=== PATIENT | female | born 1985 | race Caucasian/White ===

== ENCOUNTER 2016-09-20 07:36 | Inpatient (IN) | payer OTHER ==
[2016-09-20 08:32] VITALS: BMI 38.2
[2016-09-20] MEDS: Lactated Ringer's 1,000 ML IV SCH ×2 (08:58→19:26)
[2016-09-20 09:37] LABS: BASO % 0.4 % (0.0-2.0); EOS % 0.3 % (0.0-4.0); HEMATOCRIT 36.5 % (34.0-47.0); LYMPH # 2.1 K/uL (1.0-4.3); LYMPH % 24.3 % (20.0-40.0); MEAN CELL VOLUME 88.6 fL (81.0-99.0); MEAN CORPUSCULAR HEMOGLOBIN 29.2 pg (27.0-31.0); MEAN PLATELET VOLUME 8.4 fL (7.2-11.7); MONO # 0.5 K/uL (0.0-0.8); MONO % 5.7 % (0.0-10.0); RED CELL DISTRIBUTION WIDTH 13.4 % (11.5-14.5); WHITE BLOOD COUNT 8.5 K/uL (4.8-10.8)
[2016-09-20 09:45] LABS: CHLORIDE 104 mmol/L (98-107); POTASSIUM 3.9 mmol/L (3.6-5.2); SODIUM 137 mmol/L (132-148)
[2016-09-20 09:47] LABS: GFR AFRICAN-AMERICAN > 60
[2016-09-20 09:48] LABS: ALB/GLOB RATIO 0.9 (1.0-2.1); ALKALINE PHOSPHATASE 217 U/L (38-126); ALT/SGPT 13 U/L (9-52); AST/SGOT 13 U/L (14-36); BILIRUBIN,TOTAL 0.2 mg/dL (0.2-1.3); BLOOD UREA NITROGEN 7 mg/dL (7-17); CARBON DIOXIDE 20 mmol/L (22-30); GLUCOSE,RANDOM 79 mg/dL (65-105); TOTAL PROTEIN 6.6 g/dL (6.3-8.3)
[2016-09-20 09:49] LABS: CALCIUM 8.4 mg/dl (8.6-10.4)
[2016-09-20 09:51] LABS: RBC URINE 1 /hpf (0-3); URINE BACTERIA OCC (<OCC); URINE BILIRUBIN NEGATIVE (NEGATIVE); URINE BLOOD NEGATIVE (NEGATIVE); URINE COLOR Yellow (YELLOW); URINE GLUCOSE (UA) NORMAL (Normal); URINE KETONE NEGATIVE (NEGATIVE); URINE LEUKOCYTE ESTERASE NEG Leu/uL (Negative); URINE PROTEIN NEGATIVE (NEGATIVE); URINE UROBILINOGEN NORMAL mg/dL (0.2-1.0); WBC URINE 1 /hpf (0-5)
--- NOTE | 2016-09-20 10:35 | OBHP ---
Datetime: 09/20/2016 08:15 IP Adm Impression: Term, intrauterine ; No Active Labor; Intact Membranes IP Admit Plan: Admit to unit; Initiate labor induction protocol Admit Comment, IP Provider: 31 yo , LMP 12/20/15, STEVIE 09/25/16, EGA 39w 2d confirmed by sono at 8 weeks c/o crampy pain, onset 0500 hours. (+) AFM; denies LOF, VB. care: Dr. 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 x 3 years Fam Hx: Mother and father, both alive, both 58 y.o.; both, no med issues P.E.: as above. WD in NAD. Awake, alert, oriented to time, person and place. Pleasant and cooperat barbara. Assessment: 31 y.o. P0010, 39w 2d, prolonged latent phase of labor. Category 1 tracing. D/W patien t: cervical ripening; possible pitocin; pain management options; and possiblity of , if nee ded. Patient expresed an understanding; no questions offered. Clinically stable. Plan: 1) Admit 2) NPO 3) Admission labs 4) Continuous EFM 5) Cervidil 6) Anesthesia consult 7) Anticipate vaginal delivery - as per, and discussed with, Dr. Sidhu Pelvic Type - PN: Adequate Extremities - PN: Normal Abdomen - PN: Normal Back - PN: Normal Breast - PN: Not Done Lungs - PN: Normal Heart - PN: Normal Thyroid - PN: Not Done Neurologic - PN: Normal HEENT - PN: Normal General - PN: Normal Weight - Estimated: 3178 Presentation-Admit: Vertex FHR - Baseline A Provider: 145 Membranes, Provider: Intact Contraction Comments Provider: 5-7 Comments, ACOG Physical Exam: Skin: warm, dry, intact HEENT: full ROM Lungs: CTA bilaterally Cardiac: RRR, normal S1, S2 Abdomen: Soft, Gravid. non tender. Fundal height 37cm : no masses or discharge Extremities: no calf tenderness, cyanosis or edema All other systems reviewed and are negative Gestation - Est Wks by US: 39w 2d IP Hx Assessment: The History has been Reviewed and is Current Vital Signs Provider: Reviewed; Within Normal Limits IP Chief Complaint: Maternal discomfort NICHD Variability Prov Fetus A: Moderate 6-25bpm NICHD Accel Fetus A IP Provider: 15X15 FHR Category Provider Fetus A: Category I NICHD Decel Fetus A IP Provider: None Dilatation, Provider: 1-2 Effacement, Provider: 50 Station, Provider: -1 Genitourinary Exam: Normal DTRs - PN: Not Done
[2016-09-20] MEDS ORDERED: Nalbuphine 20 mg/ml Inj (1 ml) IVP PRN (15:15)
[2016-09-20] MEDS ORDERED: Dextrose 5%/Lactated Ringer's 1,000 ML IV SCH (15:15)
--- NOTE | 2016-09-20 17:40 | OBPN ---
Datetime: 09/20/2016 17:34 Contraction Comments Provider: 2-5 FHR - Baseline A Provider: 145 Gestation - Est Wks by US: 39w 2d Presentation-Admit: Vertex IP Progress Note Comment: Patient reports sensation of "something between my legs" V.E. : as above. Cervidil maintained in posterior vaginal fornix. Assessment: 31 yo P0, 39w 2d, prolonged latent phase of labor - cervical ripening. descent c ontributing to vaginal pressure and sensation. Category 1 tracing. Clinically stable Plan: 1) Continue present management 2) Anticipate vaginal delivery NICHD Accel Fetus A IP Provider: 15X15 NICHD Variability Prov Fetus A: Moderate 6-25bpm Dilatation, Provider: 3 Effacement, Provider: 50 Station, Provider: 1 NICHD Decel Fetus A IP Provider: None Datetime: 09/20/2016 08:15 Membranes, Provider: Intact Weight - Estimated: 3178 Vital Signs Provider: Reviewed; Within Normal Limits FHR Category Provider Fetus A: Category I
[2016-09-20] MEDS ORDERED: Oxytocin 30 UNIT 500 ML IV SCH (18:15)
[2016-09-20] MEDS ORDERED: Oxytocin 30 UNIT 500 ML IV PRN (18:24)
[2016-09-20] MEDS ORDERED: Oxytocin 30 UNIT 500 ML IV ONE (19:21)
--- NOTE | 2016-09-20 22:24 | OBPN ---
Datetime: 09/20/2016 22:19 Membranes, Provider: Ruptured Amniotic Fluid Color, Provider: Clear Contraction Comments Provider: 1 FHR - Baseline A Provider: 150 Gestation - Est Wks by US: 39w 2d Presentation-Admit: Vertex IP Progress Note Comment: Asked by Dr. Sidhu to perform AROM Patient reports pain scale of 3/10. V.E.: as above. AROM performed without incident - copious amount of clear fluid retrieved. Pitocin at 8 MU/min Assessment: 31 yo P0010, 39w 2d, prolonged latent phase of labor; S/P cervidil, on pitocin, S/P AR OM. Categry 1 tracing. Stable Plan: 1) Continue present management 2) Anticipate vaginal delivery - Spoke with Dr. Sidhu NICHD Accel Fetus A IP Provider: 15X15 FHR Category Provider Fetus A: Category I NICHD Variability Prov Fetus A: Moderate 6-25bpm Dilatation, Provider: 3-4 Effacement, Provider: 50 Station, Provider: 1 NICHD Decel Fetus A IP Provider: None
[2016-09-21] MEDS ORDERED: Lidocaine 2% Inj (20ml) ONE (02:31)
--- NOTE | 2016-09-21 03:30 | OBPN ---
Datetime: 09/21/2016 02:29 IP Progress Impression: Normal progression of labor; Reassuring heart rate IP Informed Consent Obtain: Vaginal Delivery; Risks, Benefits and Alternatives Discussed IP Progress Plan: Continue present management IP Progress Note Comment: Pt was fully dilated and felt pressure VE :10/100/+1 A/P @ 39.2 wks fully dilated, in active labor -start pushign, -antipce Datetime: 09/20/2016 08:15 Membranes, Provider: Ruptured
--- NOTE | 2016-09-21 03:36 | OBDS ---
DELIVERY PERSONNEL Delivery Doctor: Niya Sidhu MD Shrimp Packer: Maria Ines Blankenship RN MATERNAL INFORMATION Medications in Delivery: pitocin 20 units IV Maternal Complications: None; Premature Rupture of Membranes Provider Comments: pt was fully dilated, Atraumic, sponteous deliveyr of head in dany position, no nu chal cord noted. Atramaitc, spontaenous delivery of anterior followed by posterior soulder followed b y deliveyr of body. Both oral and nasal passages of the baby were bulb suctioned, umbilcal cord was c lmaped and cut. Baby hadned to mother on abodmien with rn assistance. cord blood and cord gases jorden lcted and sent x 2. Fundus firm. Good hemostais. bilateral sulcal tears and right periurethral lace ration noted and repaired after admisiting local anethestic lidocaine and repaored with 2-0 and 3-[address] Good hemostasis, no complication live female infant apgars 9, 9 weight of 6lbs 14 ounces ebl 300ml LABOR SUMMARY EDC: 09/25/2016 00:00 No. Babies in Womb: 1 Labor Anesthesia: None LABOR INFORMATION Onset of Labor: 09/20/2016 22:00 Complete Dilatation: 09/21/2016 02:05 Cervical Ripening Agents: Cervidil (Annotations: Stewart Perdomo RN per Dr. Muniz) Oxytocin: Induction Group B Beta Strep: Negative Antibiotics # of Doses: 0 Steroids Given: None Reason Steroids Not Administered: Not Applicable MEMBRANES Membranes Rupture Method: Artificial Rupture of Membranes: 09/20/2016 22:10 Length of Rupture (hrs): 4.72 Amniotic Fluid Color: Clear Amniotic Fluid Amount: Large Amniotic Fluid Odor: Normal STAGES OF LABOR Stage 1 hrs: 4 Stage 1 min: 5 Stage 2 hrs: 0 Stage 2 min: 48 Stage 3 hrs: 0 Stage 3 min: 9 Total Time in Labor hrs: 5 Total Time in Labor min: 2 VAGINAL DELIVERY Episiotomy: None Laceration Extension: Second Degree Laceration Type: Periurethral; Sulcus Laceration Repair: Yes Laceration Repair Note: bilateral sulcal laceration and right labial laceration repaored wth 2% lido elias and 2-0 and 3-0 chromic Initial Vag Sponge Count: 10 Count Comment: yes BABY A INFORMATION Delivery Date/Time: 09/21/2016 02:53 Method of Delivery: Vaginal Born in Route : No : N/A Forceps: N/A Vacuum Extraction: N/A Shoulder Dystocia : No SHOULDER DYSTOCIA BABY A Infant Delivery Date/Time: 09/21/2016 02:53 PRESENTATION/POSITION BABY A Presentation: Cephalic Cephalic Presentation: Vertex Vertex Position: Left Occipital Anterior Breech Presentation: N/A PLACENTA INFORMATION BABY A Placenta Delivery Time : 09/21/2016 03:02 Placenta Method of Delivery: Spontaneous Placenta Status: Delivered SCORES BABY A Heart Rate 1 min: >100 bpm Resp Effort 1 min: Good Cry Reflex Irritability 1 min: Cough or Sneeze or Pulls Away Muscle Tone 1 min: Active Motion Color 1 min: Body [place], Extremities Blue SCORE 1 MIN: 9 Heart Rate 5 min: >100 bpm Resp Effort 5 min: Good Cry Reflex Irritability 5 min: Cough or Sneeze or Pulls Away Muscle Tone 5 min: Active Motion Color 5 min: Body [place], Extremities Blue SCORE 5 MIN: 9 INFANT INFORMATION BABY A Gestational Age at Delivery: 39.3 Gestational Status: Term Outcome : Liveborn Infant Condition : Stable Sex: Female IDENTIFICATION/MEDS BABY A ID Band Number: [id number] ID Band Location: Left Leg; Left Arm Sensor Applied: Yes Sensor Number: [id number] Sensor Location : Right Leg Vitamin K Given : Aquamephyton 1 mg IM; Left Thigh Erythromycin Given: Given Both Eyes WEIGHT/LENGTH BABY A Birthweight (gms): 3110 Weight (lb): 6 Weight (oz): 14 Length Inches: 19.00 Infant Length cms: 48.3 CORD INFORMATION BABY A No. Cord Vessels: 3 Nuchal Cord : N/A Cord Blood Taken: Yes Suction: Mouth; Nose ASSESSMENT BABY A Complications: None Complications Other: none Physical Findings at Delivery: Within Normal Limits Infant Respirations: Appears Normal Head Waiter/Waitress/ALS Called : No Care By: RAJAN Transferred To: Remains with Mother
[2016-09-21] MEDS ORDERED: Oxycodone/Acetaminophen 5/325 mg Tab PO PRN ×2 (03:45)
[2016-09-21] MEDS ORDERED: Acetaminophen-Codeine 300/30 mg Tab PO PRN (03:45)
[2016-09-21] MEDS: Benzocaine/Menthol 20%-0.5% Topical Spray (60 ml) TOP PRN (05:45)
[2016-09-21] MEDS: Multiple Vitamins Tab PO SCH (10:21)
[2016-09-22 08:03] LABS: BASO % 0.5 % (0.0-2.0); EOS % 0.4 % (0.0-4.0); HEMATOCRIT 33.1 % (34.0-47.0); LYMPH # 2.2 K/uL (1.0-4.3); LYMPH % 24.1 % (20.0-40.0); MEAN CELL VOLUME 88.7 fL (81.0-99.0); MEAN CORPUSCULAR HEMOGLOBIN 29.1 pg (27.0-31.0); MEAN CORPUSCULAR HGB CONC 32.8 g/dL (33.0-37.0); MEAN PLATELET VOLUME 8.7 fL (7.2-11.7); MONO # 0.5 K/uL (0.0-0.8); MONO % 5.6 % (0.0-10.0); RED CELL DISTRIBUTION WIDTH 13.5 % (11.5-14.5)
[2016-09-22] MEDS: Multiple Vitamins Tab PO SCH (09:36)
[2016-09-23 08:01] VITALS: PULSE 88; RESP 18; TEMP 98; O2SAT 98
[2016-09-23 08:07] VITALS: BP 110/76
[2016-09-23] MEDS: Multiple Vitamins Tab PO SCH (09:14)
[2016-09-23] MEDS: Benzocaine/Menthol 20%-0.5% Topical Spray (60 ml) TOP PRN (09:14)
--- NOTE | 2016-09-23 09:49 | OBPPN ---
Datetime: 09/23/2016 09:46 PP Pain Prov: Within normal limits PP Nausea Prov: Denies PP Flatus Prov: Yes PP BM Prov: Yes PP Breasts Prov: Normal PP Heart Prov: Normal PP Lungs Prov: Normal PP Abdomen/Uterus Prov: Normal PP Lochia Prov: Normal PP Vulva/Perineum Prov: Normal PP CVA Tenderness Prov: Normal PP Extremities Prov: Normal PP C/S Incision Prov: Not Applicable PP Progress Prov: Normal PP Comments Phys Exam Prov: Uterus firm and contracted. Lochia minimal. PP Impression Prov: Normal progression PP Plan Prov: Discharge PP Progress Note Prov: Stable. Discharge home. Vital Signs Provider PP: Reviewed; Within Normal Limits
== END 2016-09-23 18:59 | disposition home or self-care (01) | DRG 775 ==
LOC: C.EROB 07:36 → C.4D 08:33 → UNDOADMIN 08:45 → C.4D 08:45 → C.4M 09-21 05:00
PROVIDERS: ADMIT Obstetrics & Gynecology; ATTEND Obstetrics & Gynecology
PROC: 10E0XZZ Delivery of Products of Conception, External Approach (ICD-10-PCS; principal; 2016-09-21)
PROC: 0KQM0ZZ Repair Perineum Muscle, Open Approach (ICD-10-PCS; 2016-09-21)
PROC: 3E0P7GC Introduction of Other Therapeutic Substance into Female Reproductive, Via Natural or Artificial Opening (ICD-10-PCS; 2016-09-21)
PROC: 10907ZC Drainage of Amniotic Fluid, Therapeutic from Products of Conception, Via Natural or Artificial Opening (ICD-10-PCS; 2016-09-21)
DX: O63.0 Prolonged first stage (of labor) (principal); O70.1 Second degree perineal laceration during delivery; Z3A.39 39 weeks gestation of pregnancy; Z37.0 Single live birth